=== PATIENT | male | born 1995 | race African-American/Black ===

== ENCOUNTER 2024-04-05 18:36 | Emergency (ER) | payer SELFPAY ==
[2024-04-05] MEDS: Albuterol/Ipratropium 3.0-0.5 MG/3 ML Neb Soln NEB ONE ×2 (18:47→19:00)
== END 2024-04-05 19:48 | disposition home or self-care (01) ==
LOC: LL.ED 18:36
DX: J45.901 Unspecified asthma with (acute) exacerbation (principal); Z91.048 Other nonmedicinal substance allergy status; Z79.51 Long term (current) use of inhaled steroids; Z79.52 Long term (current) use of systemic steroids
CPT/HCPCS: 94640; 99283; 99284; J7620-GY